=== PATIENT | female | born 1955 | race Caucasian/White ===

== ENCOUNTER → 2017-03-27 | Outpatient (REF) | payer BC ==
[2017-03-27 11:58] LABS: MEAN CORPUSCULAR HEMOGLOBIN 31.5 pg (27.0-33.0); MEAN CORPUSCULAR HGB CONC 33.2 g/dl (32.0-36.5); PLATELET COUNT, AUTOMATED 221 10^3/uL (150-450); RED CELL DISTRIBUTION WIDTH 11.6 % (11.5-14.5); WHITE BLOOD COUNT 4.2 10^3/uL (4.0-10.0)
[2017-03-27 12:25] LABS: ALBUMIN 4.2 GM/DL (3.2-5.2); ALKALINE PHOSPHATASE 73 U/L (45-117); ALT/SGPT 28 U/L (12-78); ANION GAP 6 MEQ/L (8-16); AST/SGOT 19 U/L (7-37); BILIRUBIN,TOTAL 0.5 MG/DL (0.2-1.0); BLOOD UREA NITROGEN 14 MG/DL (7-18); CARBON DIOXIDE LEVEL 29 MEQ/L (21-32); CHLORIDE LEVEL 106 MEQ/L (98-107); CHOLESTEROL LEVEL 239 MG/DL (<200); CREATININE FOR GFR 0.68 MG/DL (0.55-1.02); GLOMERULAR FILTRATION RATE > 60.0 (>51); GLUCOSE, FASTING 106 MG/DL (70-105); POTASSIUM SERUM 4.2 MEQ/L (3.5-5.1); SODIUM LEVEL 141 MEQ/L (136-145); TOTAL PROTEIN 7.2 GM/DL (6.4-8.2); TRIGLYCERIDES LEVEL 104 MG/DL (<150)
== END ==
LOC: M SFHCPLAZ 09:47
PROVIDERS: ATTEND Internal Medicine
DX: J30.9 Allergic rhinitis, unspecified (principal); E78.00 Pure hypercholesterolemia, unspecified; M85.80 Other specified disorders of bone density and structure, unspecified site

== ENCOUNTER → 2017-04-16 | Outpatient (CLI) | payer BC | LOC: M WHC 10:51 | DX: M85.80 Other specified disorders of bone density and structure, unspecified site (principal) | CPT/HCPCS: 77080 ==

== ENCOUNTER → 2017-04-16 | Outpatient (CLI) | payer BC | LOC: M WHC 10:44 | DX: Z12.31 Encounter for screening mammogram for malignant neoplasm of breast (principal) | CPT/HCPCS: 77067 ==

== ENCOUNTER 2017-10-29 07:12 | Day surgery (SDC) | payer BC ==
[2017-10-29] MEDS: NS 1,000 ML IV (07:30)
[2017-10-29] MEDS ORDERED: PROPOFOL 200 MG/20 ML VIAL As Ordered ×2 (08:25→08:37)
== END 2017-10-29 09:13 | disposition home or self-care (01) ==
LOC: M OPP 07:12
DX: Z12.11 Encounter for screening for malignant neoplasm of colon (principal); K64.0 First degree hemorrhoids; J45.909 Unspecified asthma, uncomplicated; G43.909 Migraine, unspecified, not intractable, without status migrainosus; Z79.899 Other long term (current) drug therapy; Z91.040 Latex allergy status; Z88.8 Allergy status to other drugs, medicaments and biological substances; Z90.710 Acquired absence of both cervix and uterus
CPT/HCPCS: 45378

== ENCOUNTER → 2018-03-18 | Outpatient (REF) | payer BC ==
[2018-03-18 11:54] LABS: HEMATOCRIT 40.8 % (36.0-47.0); HEMOGLOBIN 13.4 g/dl (12.0-15.5); MEAN CORPUSCULAR HEMOGLOBIN 31.5 pg (27.0-33.0); MEAN CORPUSCULAR HGB CONC 32.8 g/dl (32.0-36.5); MEAN CORPUSCULAR VOLUME 95.8 fl (80.0-96.0); PLATELET COUNT, AUTOMATED 222 10^3/uL (150-450); RED BLOOD COUNT 4.26 10^6/uL (4.00-5.40); RED CELL DISTRIBUTION WIDTH 11.9 % (11.5-14.5)
[2018-03-18 12:16] LABS: ALBUMIN 3.7 GM/DL (3.2-5.2); ALBUMIN/GLOBULIN RATIO 1.19 (1.00-1.93); ALKALINE PHOSPHATASE 73 U/L (45-117); ALT/SGPT 36 U/L (12-78); ANION GAP 6 MEQ/L (8-16); AST/SGOT 20 U/L (7-37); BILIRUBIN,TOTAL 0.6 MG/DL (0.2-1.0); BLOOD UREA NITROGEN 14 MG/DL (7-18); CALCIUM LEVEL 8.6 MG/DL (8.8-10.2); CARBON DIOXIDE LEVEL 29 MEQ/L (21-32); CHLORIDE LEVEL 108 MEQ/L (98-107); CHOLESTEROL LEVEL 210 MG/DL (<200); CREATININE FOR GFR 0.71 MG/DL (0.55-1.30); GLOMERULAR FILTRATION RATE > 60.0 (>45); GLUCOSE, FASTING 89 MG/DL (70-100); HDL CHOLESTEROL 58 MG/DL (>40); LDL CHOLESTEROL 129 MG/DL (<100); NON-HDL-C 152 MG/DL; POTASSIUM SERUM 4.3 MEQ/L (3.5-5.1); SODIUM LEVEL 143 MEQ/L (136-145); TOTAL PROTEIN 6.8 GM/DL (6.4-8.2); TRIGLYCERIDES LEVEL 114 MG/DL (<150)
== END ==
LOC: M SFHCPLAZ 09:22
DX: J30.9 Allergic rhinitis, unspecified (principal); E78.00 Pure hypercholesterolemia, unspecified
CPT/HCPCS: 80053

== ENCOUNTER → 2019-03-19 | Outpatient (REF) | payer BC ==
[~2019-03-19] MED LIST: LORA-243 PO; PROAAER10 INH
[2019-03-19 12:05] LABS: HEMOGLOBIN 14.1 g/dl (12.0-15.5); MEAN CORPUSCULAR HEMOGLOBIN 31.2 pg (27.0-33.0); MEAN CORPUSCULAR VOLUME 97.3 fl (80.0-96.0); PLATELET COUNT, AUTOMATED 207 10^3/uL (150-450); RED BLOOD COUNT 4.52 10^6/uL (4.00-5.40); WHITE BLOOD COUNT 3.9 10^3/uL (4.0-10.0)
[2019-03-19 12:53] LABS: ALT/SGPT 31 U/L (12-78); BILIRUBIN,TOTAL 0.6 MG/DL (0.2-1.0); BLOOD UREA NITROGEN 15 MG/DL (7-18); CARBON DIOXIDE LEVEL 31 MEQ/L (21-32); CHLORIDE LEVEL 106 MEQ/L (98-107); CHOLESTEROL LEVEL 240 MG/DL (<200); CHOLESTEROL RISK RATIO 3.582 (<5); CREATININE FOR GFR 0.75 MG/DL (0.55-1.30); GLOMERULAR FILTRATION RATE > 60.0 (>45); GLUCOSE, FASTING 91 MG/DL (70-100); HDL CHOLESTEROL 67 MG/DL (>40); LDL CHOLESTEROL 156 MG/DL (<100); NON-HDL-C 173 MG/DL; SODIUM LEVEL 141 MEQ/L (136-145); TOTAL PROTEIN 7.2 GM/DL (6.4-8.2); TRIGLYCERIDES LEVEL 83 MG/DL (<150)
[2019-03-19 13:25] LABS: TOTAL 25(OH) VITAMIN D 27.6 NG/ML (30.0-100.0)
== END ==
LOC: M SFHCPLAZ 09:55
PROVIDERS: ATTEND Internal Medicine
DX: J30.9 Allergic rhinitis, unspecified (principal); E78.00 Pure hypercholesterolemia, unspecified; G43.909 Migraine, unspecified, not intractable, without status migrainosus; M81.0 Age-related osteoporosis without current pathological fracture

== ENCOUNTER → 2019-03-19 | Outpatient (CLI) | payer BC ==
--- NOTE | 2019-03-19 13:47 | REPMRS ---
Patient History The patient states she had a clinical breast exam in August 2018. Family history of breast cancer at age 70 in mother. Took hormonal contraceptives for 2 years. 3D TOMOSYNTHESIS WAS PERFORMED. The Josh Donovan lifetime risk for breast cancer is 12.7%. Digital Mammo Screening Bilat: March 19, 2019 - Exam #: [id number] Bilateral CC and MLO view(s) were taken. Technologist: Abigail Ortega, Technologist Prior study comparison: April 16, 2017, digital woman screen mammo, [facility]. December 15, 2014, digital bilateral screening mammo, performed at [facility]. FINDINGS: The breast tissue is heterogeneously dense. This may lower the sensitivity of mammography. There has been no change in the appearance of the mammogram from the prior studies. There is a moderate amount of residual fibroglandular tissue which is fairly symmetric. There is no interval development of dominant mass, areas of architectural distortion, or clustered microcalcification typical of malignancy. Assessment: BI-RADS/ACR category 1 mammogram. Negative Mammogram. Recommendation Routine screening mammogram in 1 year (for women over age 40). This mammogram was interpreted with the aid of an FDA-approved computer-aided dectection system. Electronically Signed By: Ronnie Sauer MD 03/19/19 [id number]
== END ==
LOC: M RAD 12:52
PROVIDERS: ATTEND Nurse Practitioner Women's Health
DX: Z12.31 Encounter for screening mammogram for malignant neoplasm of breast (principal); Z92.0 Personal history of contraception

== ENCOUNTER → 2020-03-23 | Outpatient (CLI) | payer BC ==
--- NOTE | 2020-03-23 15:29 | DEXAMM ---
INDICATION: Z13.820 SCR FOR OSTEOPOROSIS. COMPARISON: 04/16/2017 as well as other prior exams. TECHNIQUE: Bone density was measured using dual-energy x-ray absorptiometry (DEXA). FINDINGS: AP SPINE L1-L4 BMD 0.769 g/cm2 Young Adult T-Score -3.4 Age Matched Z-Score -2.0. LT FEMUR, TOTAL BMD 0.765 g/cm2 Young Adult T-Score -1.9 Age Matched Z-Score -0.9. LT NECK BMD 0.704 g/cm2 Young Adult T-Score -2.4 Age Matched Z-Score -1.1. RT FEMUR, TOTAL BMD 0.811 g/cm2 Young Adult T-Score -1.6 Age Matched Z-Score -0.5. RT NECK BMD 0.731 g/cm2 Young Adult T-Score -2.2 Age Matched Z-Score -0.9. IMPRESSION: There is osteoporosis of the spine. There is low bone density of the left hip. There is low bone density of the right hip. The density of the spine has decreased 24.6% since the initial exam on 05/01/2003. The density of the spine decreased 2.0% since most recent exam on 04/16/2017. The density of the left hip has decreased 21.5% since initial exam on 08/07/2006. The density of the left hip has decrease 3.0% since most recent exam on 04/16/2017. The density of the right hip has decreased 16.4% since the initial exam on 08/07/2006. The density of the right hip has decreased 0.1% since the most recent exam on 04/16/2017. FOLLOW-UP: Recommendation for the next bone density exam: 2 years. <Electronically signed by Ronnie Sauer > 03/23/20 [id number]
--- NOTE | 2020-03-23 16:52 | REPMRS ---
Patient History The patient states she had a clinical breast exam in 03/2020. Patient has history of other cancer. Family history of breast cancer at age 70 in mother. Took hormonal contraceptives for 2 years. Digital Woman Screen Mammo: March 23, 2020 - Exam #: [id number] Bilateral CC and MLO view(s) were taken. Technologist: Padmini Ruiz, Technologist Prior study comparison: March 19, 2019, bilateral digital mammo screening bilat, performed at [facility]. April 16, 2017, digital woman screen mammo performed at [facility] [place]. December 15, 2014, digital bilateral screening mammo, performed at [facility]. FINDINGS: There are scattered fibroglandular densities. The Volpara volumetric breast density category is:B. There has been no change in the appearance of the mammogram from the prior studies. There is a mild amount of scattered fibroglandular density which is fairly symmetric. There is no interval development of dominant mass, architectural distortion, or grouped microcalcification suggestive of malignancy. 3-D tomosynthesis shows no additional findings. Assessment: BI-RADS/ACR category 1 mammogram. Negative Mammogram. Recommendation Routine screening mammogram of both breasts in 1 year (for women over age 40). This patient's [facility] Lifetime Breast Cancer Risk is estimated at 12.2 %. This mammogram was interpreted with the aid of an FDA-approved computer-aided dectection system. Electronically Signed By: Cruzito Ritchie MD 03/23/20 [id number]
== END ==
LOC: M WHC 12:56
PROVIDERS: ATTEND Advanced Practice Midwife
DX: Z12.31 Encounter for screening mammogram for malignant neoplasm of breast (principal); Z13.820 Encounter for screening for osteoporosis; M81.0 Age-related osteoporosis without current pathological fracture

== ENCOUNTER → 2021-04-04 | Outpatient (CLI) | payer BC ==
[2021-04-04 13:27] LABS: BASO % 0.9 % (0.0-1.0); EOS # 0.2 10^3/uL (0.0-0.5); EOS % 3.8 % (0.0-3.0); HEMATOCRIT 42.3 % (36.0-47.0); LYMPH # 1.5 10^3/uL (1.5-5.0); LYMPH % 32.5 % (24.0-44.0); MEAN CORPUSCULAR HEMOGLOBIN 31.6 pg (27.0-33.0); MEAN CORPUSCULAR HGB CONC 33.1 g/dl (32.0-36.5); MEAN CORPUSCULAR VOLUME 95.5 fl (80.0-96.0); MONO # 0.3 10^3/uL (0.0-0.8); MONO % 6.4 % (2.0-8.0); NEUTROPHILS # 2.6 10^3/uL (1.5-8.5); NEUTROPHILS % 56.4 % (36.0-66.0); PLATELET COUNT, AUTOMATED 230 10^3/uL (150-450); RED BLOOD COUNT 4.43 10^6/uL (4.00-5.40); WHITE BLOOD COUNT 4.5 10^3/uL (4.0-10.0)
[2021-04-04 14:02] LABS: ALT/SGPT 31 U/L (12-78); BILIRUBIN,TOTAL 0.6 MG/DL (0.2-1.0); BLOOD UREA NITROGEN 16 MG/DL (7-18); CALCIUM LEVEL 9.3 MG/DL (8.8-10.2); CARBON DIOXIDE LEVEL 29 MEQ/L (21-32); CHLORIDE LEVEL 107 MEQ/L (98-107); CHOLESTEROL LEVEL 238 MG/DL (<200); CHOLESTEROL RISK RATIO 3.606 (<5); CREATININE FOR GFR 0.67 MG/DL (0.55-1.30); GLOMERULAR FILTRATION RATE > 60.0 (>45); GLUCOSE, FASTING 101 MG/DL (70-100); HDL CHOLESTEROL 66 MG/DL (>40); LDL CHOLESTEROL 154 MG/DL (<100); NON-HDL-C 172 MG/DL; POTASSIUM SERUM 4.4 MEQ/L (3.5-5.1); SODIUM LEVEL 141 MEQ/L (136-145); TRIGLYCERIDES LEVEL 90 MG/DL (<150)
[2021-04-04 14:48] LABS: HEPATITIS C VIRUS ABY INDEX 0.1 INDEX (<0.8)
== END ==
LOC: M PLALAB 11:00
PROVIDERS: ATTEND Internal Medicine
DX: Z00.00 Encounter for general adult medical examination without abnormal findings (principal); Z11.59 Encounter for screening for other viral diseases; J45.990 Exercise induced bronchospasm; E78.00 Pure hypercholesterolemia, unspecified

== ENCOUNTER → 2021-08-31 | Outpatient (CLI) | payer BC | LOC: M WHC 10:48 | PROVIDERS: ATTEND Internal Medicine | DX: Z12.31 Encounter for screening mammogram for malignant neoplasm of breast (principal) ==

== ENCOUNTER → 2022-04-11 | Outpatient (CLI) | payer BC ==
[2022-04-11 16:51] LABS: BASO % 0.8 % (0.0-1.0); EOS # 0.2 10^3/uL (0.0-0.5); EOS % 5.1 % (0.0-3.0); HEMOGLOBIN 14.1 g/dl (12.0-15.5); LYMPH # 1.6 10^3/uL (1.5-5.0); MEAN CORPUSCULAR HEMOGLOBIN 31.4 pg (27.0-33.0); MONO # 0.3 10^3/uL (0.0-0.8); MONO % 5.9 % (2.0-8.0); NEUTROPHILS # 2.5 10^3/uL (1.5-8.5); PLATELET COUNT, AUTOMATED 231 10^3/uL (150-450); RED BLOOD COUNT 4.49 10^6/uL (4.00-5.40); WHITE BLOOD COUNT 4.7 10^3/uL (4.0-10.0)
[2022-04-11 17:18] LABS: ALKALINE PHOSPHATASE 75 U/L (46-116); ALT/SGPT 34 U/L (7.0-40); AST/SGOT 26 U/L (<34); BILIRUBIN,TOTAL 0.7 MG/DL (0.3-1.2); BLOOD UREA NITROGEN 16 MG/DL (9-23); CALCIUM LEVEL 9.6 MG/DL (8.3-10.6); CARBON DIOXIDE LEVEL 31 MMOL/L (20-31); CHLORIDE LEVEL 102 MMOL/L (98-107); CHOLESTEROL LEVEL 233 MG/DL (<200); CHOLESTEROL RISK RATIO 3.74 (<5); CREATININE FOR GFR 0.63 MG/DL (0.55-1.30); GLOMERULAR FILTRATION RATE > 60.0 (>45); GLUCOSE, FASTING 99 MG/DL (74-106); HDL CHOLESTEROL 62.2 MG/DL (>40); LDL CHOLESTEROL 148.4 MG/DL (<100); NON-HDL-C 171 MG/DL; POTASSIUM SERUM 4.1 MMOL/L (3.5-5.1); SODIUM LEVEL 140 MMOL/L (136-145); TOTAL PROTEIN 7.1 G/DL (5.7-8.2); TRIGLYCERIDES LEVEL 112 MG/DL (<150)
[2022-04-11 17:19] LABS: TOTAL 25(OH) VITAMIN D 34.9 NG/ML (20.0-100.0)
== END ==
LOC: M WUC 11:26
PROVIDERS: ATTEND Internal Medicine
DX: R73.01 Impaired fasting glucose (principal); E78.00 Pure hypercholesterolemia, unspecified; Z12.39 Encounter for other screening for malignant neoplasm of breast; M81.0 Age-related osteoporosis without current pathological fracture; J45.990 Exercise induced bronchospasm

== ENCOUNTER → 2022-11-10 | Outpatient (CLI) | payer BC | LOC: M WHC 13:08 | PROVIDERS: ATTEND Advanced Practice Midwife | DX: Z12.31 Encounter for screening mammogram for malignant neoplasm of breast (principal) ==

== ENCOUNTER → 2023-07-20 | Outpatient (CLI) | payer BC, MEDICARE ==
[2023-07-20 18:26] LABS: HEMATOCRIT 42.7 % (36.0-47.0); HEMOGLOBIN 13.8 g/dl (12.0-15.5); MEAN CORPUSCULAR HEMOGLOBIN 31.5 pg (27.0-33.0); MEAN CORPUSCULAR HGB CONC 32.3 g/dl (32.0-36.5); MEAN CORPUSCULAR VOLUME 97.5 fl (80.0-96.0); PLATELET COUNT, AUTOMATED 214 10^3/uL (150-450); RED BLOOD COUNT 4.38 10^6/uL (4.00-5.40); WHITE BLOOD COUNT 4.1 10^3/uL (4.0-10.0)
[2023-07-20 18:35] LABS: ALBUMIN 4.1 G/DL (3.2-5.2); ALKALINE PHOSPHATASE 77 U/L (46-116); ALT/SGPT 28 U/L (7.0-40); AST/SGOT 19 U/L (<34); BILIRUBIN,TOTAL 0.6 MG/DL (0.3-1.2); BLOOD UREA NITROGEN 12 MG/DL (9-23); CALCIUM LEVEL 9.5 MG/DL (8.3-10.6); CARBON DIOXIDE LEVEL 29 MMOL/L (20-31); CHLORIDE LEVEL 107 MMOL/L (98-107); CHOLESTEROL LEVEL 210 MG/DL (<200); CHOLESTEROL RISK RATIO 3.55 (<5); CREATININE FOR GFR 0.62 MG/DL (0.55-1.30); GLOMERULAR FILTRATION RATE > 60.0 (>45); GLUCOSE, FASTING 98 MG/DL (74-106); LDL CHOLESTEROL 132.6 MG/DL (<100); SODIUM LEVEL 141 MMOL/L (136-145); TOTAL PROTEIN 6.8 G/DL (5.7-8.2); TRIGLYCERIDES LEVEL 92 MG/DL (<150)
[2023-07-20 18:36] LABS: THYROID STIMULATING HORMONE 2.215 uIU/ML (0.55-4.78)
[2023-07-20 18:37] LABS: TOTAL 25(OH) VITAMIN D 33.5 NG/ML (20.0-100.0)
== END ==
LOC: M WUC 11:40
PROVIDERS: ATTEND Nurse Practitioner Adult Health
DX: J45.990 Exercise induced bronchospasm (principal); E78.00 Pure hypercholesterolemia, unspecified; R73.01 Impaired fasting glucose; M81.0 Age-related osteoporosis without current pathological fracture

== ENCOUNTER → 2023-12-18 | Outpatient (CLI) | payer BC | LOC: M WHC 13:14 | PROVIDERS: ATTEND Advanced Practice Midwife | DX: Z12.31 Encounter for screening mammogram for malignant neoplasm of breast (principal) ==

== ENCOUNTER → 2024-08-25 | Outpatient (CLI) | payer BC ==
[2024-08-25 14:30] LABS: ALBUMIN 3.9 G/DL (3.2-5.2); ALKALINE PHOSPHATASE 78 U/L (35-104); ALT/SGPT 23 U/L (7.0-40); AST/SGOT 16 U/L (<34); BILIRUBIN,TOTAL 0.7 MG/DL (0.3-1.2); BLOOD UREA NITROGEN 16 MG/DL (9-23); CALCIUM LEVEL 9.7 MG/DL (8.3-10.6); CARBON DIOXIDE LEVEL 31 MMOL/L (20-31); CHLORIDE LEVEL 105 MMOL/L (98-107); CHOLESTEROL LEVEL 233 MG/DL (<200); CHOLESTEROL RISK RATIO 3.56 (<5); CREATININE FOR GFR 0.63 MG/DL (0.55-1.30); GLOMERULAR FILTRATION RATE > 90.0 (>45); GLUCOSE, FASTING 107 MG/DL (74-106); HDL CHOLESTEROL 65.3 MG/DL (>40); HEMATOCRIT 41.9 % (36.0-47.0); HEMOGLOBIN 13.8 g/dl (12.0-15.5); LDL CHOLESTEROL 146.1 MG/DL (<100); MEAN CORPUSCULAR HEMOGLOBIN 31.9 pg (27.0-33.0); MEAN CORPUSCULAR HGB CONC 32.9 g/dl (32.0-36.5); MEAN CORPUSCULAR VOLUME 96.8 fl (80.0-96.0); NON-HDL-C 167.7 MG/DL; PLATELET COUNT, AUTOMATED 232 10^3/uL (150-450); POTASSIUM SERUM 4.3 MMOL/L (3.5-5.1); RED BLOOD COUNT 4.33 10^6/uL (4.00-5.40); SODIUM LEVEL 143 MMOL/L (136-145); TOTAL PROTEIN 6.8 G/DL (5.7-8.2); TRIGLYCERIDES LEVEL 108 MG/DL (<150); WHITE BLOOD COUNT 4.2 10^3/uL (4.0-10.0)
[2024-08-25 14:31] LABS: FREE T4 1.11 NG/DL (0.89-1.76); THYROID STIMULATING HORMONE 2.221 uIU/ML (0.55-4.78)
[2024-08-25 15:49] LABS: HEMOGLOBIN A1c 5.4 % (4.0-6.0)
== END ==
LOC: M WUC 09:22
PROVIDERS: ATTEND Nurse Practitioner Adult Health
DX: Z00.00 Encounter for general adult medical examination without abnormal findings (principal); I45.9 Conduction disorder, unspecified; R73.01 Impaired fasting glucose; E55.9 Vitamin D deficiency, unspecified; E78.00 Pure hypercholesterolemia, unspecified

== ENCOUNTER → 2024-12-19 | Outpatient (CLI) | payer BC | LOC: M WHC 14:30 | PROVIDERS: ATTEND Advanced Practice Midwife | DX: Z12.31 Encounter for screening mammogram for malignant neoplasm of breast (principal) ==